=== PATIENT | female | born 1990 | race Caucasian/White ===

== ENCOUNTER 2017-02-20 16:32 | Emergency (ER) | payer MEDICAID ==
[2017-02-20 18:00] LABS: Hematocrit 30.6 % (30.3-42.9); Hemoglobin 9.3 gm/dl (10.1-14.3); Mean Corpuscular HGB Conc 31 % (30-34); Mean Corpuscular Volume 72 fl (79-97); Platelet Count 171 K/mm3 (140-440); Red Blood Count 4.24 M/mm3 (3.65-5.03); Red Cell Distribution Width 17.6 % (13.2-15.2); White Blood Count 5.5 K/mm3 (4.5-11.0)
[2017-02-20 18:07] LABS: Mean Corpuscular Hemoglobin 22 pg (28-32)
[2017-02-20 18:20] LABS: Anion Gap 17 mmol/L; Blood Urea Nitrogen 6 mg/dL (7-17); Calcium 9.1 mg/dL (8.4-10.2); Carbon Dioxide 25 mmol/L (22-30); Chloride 102.7 mmol/L (98-107); Glucose 82 mg/dL (65-100); Potassium 3.6 mmol/L (3.6-5.0); Sodium 141 mmol/L (137-145)
[2017-02-20] MEDS ORDERED: TYLENOL #3 PO ONE (19:15)
[2017-02-20] MEDS ORDERED: CLEOCIN IM ONE (19:15)
--- NOTE | 2017-02-20 19:15 | Emergency Department Report ---
HPI - General Chief Complaint: Dental/Oral Time Seen by Provider: 02/20/17 19:02 - HPI HPI: Patient here for swollen gums aroun left lower back tooth. Pain 10/10 and aching. This started 2 days ago and now with left facial swelling. Took tyleno without relief . Patient does not have a dentist. Denies fever or chills. Denies sore throat. Denies SOB, cough or drooling. denies medical problems. LMP 02/20/2017. ED Past Medical Hx - Past Medical History Previous Medical History?: No - Surgical History Past Surgical History?: No - Family History Family history: no significant - Social History Smoking Status: Never Smoker Substance Use Type: None - Medications Home Medications: Home Medications Medication Instructions Recorded Confirmed Last Taken Type Acetaminophen/Codeine [Tylenol 1 tab PO Q6H PRN #20 tab 02/20/17 Unknown Rx /Codeine # 3 tab] Clindamycin [Clindamycin CAP] 300 mg PO Q8H #30 cap 02/20/17 Unknown Rx Docusate Sodium [Colace] 100 mg PO BID #60 capsule 02/20/17 Unknown Rx Ferrous Sulfate [Feosol 325 MG tab] 325 mg PO BID #60 tablet 02/20/17 Unknown Rx ED Review of Systems ROS: Stated complaint: GUM SWOLLEN,LEFT SIDE Other details as noted in HPI Comment: All other systems reviewed and negative Constitutional: denies: chills, fever ENT: dental pain, other (swoolen left face). denies: ear pain, throat pain, hearing loss, epistaxis, congestion Respiratory: no symptoms reported Cardiovascular: denies: chest pain, palpitations, edema, syncope Gastrointestinal: denies: nausea, vomiting Musculoskeletal: denies: back pain, joint swelling, arthralgia Skin: denies: rash Neurological: denies: headache Physical Exam - Physical Exam Vital Signs: Vital Signs 02/20/17 17:11 Temperature 98.5 F Pulse Rate 76 Respiratory 16 Rate Blood Pressure 116/78 O2 Sat by Pulse 100 Oximetry General: This is a 26 yo patient well- nourished, well developed in no acute distress. Physical Exam: Head: Normocephalic atraumatic Mouth: Moist, no pharyngeal exudate or erythema. Uvula is midline and oral airway is patent. Positive gingival enlargement and inflammation around tooth #17,18 and 19. Positive dental tenderness and erythema around tooth #17 , 18 and 19. Positive left facial swelling. Positive dental caries noted .No peritonsillar abscesses. Neck: Supple, no C-spine tenderness, no tracheal deviation. Nontender to palpate. no adenopathy Ears: Bilateral TMs pearly pearson .bilateral EAC without any redness swelling or drainage Eyes: Bilateral pupils equal and reactive to light, bilateral EOM intact. Bilateral sclera and conjunctiva without injection. Normal accommodation Nose: Mucosa moist, normal mucosa .maxillary and frontal sinus non-tender to palpate. Lungs: Clear to auscultate bilaterally no rhonchi wheezes or rales. Normal work of breathing extremity; No CCE. +2 pulses. No neurovascular compromise Cardiovascular: S1-S2, regular rate rhythm. No murmurs. Skin: clean Dry and intact no rash no lesions Psych: Normal mood and behavior Positive ED Course Vital Signs 02/20/17 17:11 Temperature 98.5 F Pulse Rate 76 Respiratory 16 Rate Blood Pressure 116/78 O2 Sat by Pulse 100 Oximetry - Reevaluation(s) Reevaluation #1: 02/20/17 19:23 Patient received Clindamycin 300 mg im and Tylenol #3 2 tabs po in emergency room for infection and toothache ED Medical Decision Making - Lab Data Result diagrams: 02/20/17 17:22 02/20/17 17:22 Lab Results 02/20/17 02/20/17 Range/Units 17:22 17:22 WBC 5.5 (4.5-11.0) K/mm3 RBC 4.24 (3.65-5.03) M/mm3 Hgb 9.3 L (10.1-14.3) gm/dl Hct 30.6 (30.3-42.9) % MCV 72 L (79-97) fl MCH 22 L (28-32) pg MCHC 31 (30-34) % RDW 17.6 H (13.2-15.2) % Plt Count 171 (140-440) K/mm3 Sodium 141 (137-145) mmol/L Potassium 3.6 (3.6-5.0) mmol/L Chloride 102.7 (98-107) mmol/L Carbon Dioxide 25 (22-30) mmol/L Anion Gap 17 mmol/L BUN 6 L (7-17) mg/dL Creatinine 0.5 L (0.7-1.2) mg/dL Estimated GFR > 60 ml/min BUN/Creatinine Ratio 12.00 % Glucose 82 (65-100) mg/dL Calcium 9.1 (8.4-10.2) mg/dL - Medical Decision Making ED Course: Patient here reports swollen gums and toothache that has been ongoing. Denies fever or chills. Patient with Gingivitis, dental caries, Toothache and cellulites oral mucosa. She was given Tyleno#3 2 tablets for pain control and clindamycin IM 600mg for cellulites. Patient given results of lab work and told that she is anemic and need to take iron pills. and educated on diagnosis and treatment plan. I instructed her to follow up with [facility] to call on Thursday to schedule appointment for dental follow up. She voiced understanding of treatment plan and diagnosis. Patient discharged home with prescription for Tyl #3 , colace, Feso4 and clindamycin. Good RX card given for discount. Critical care attestation.: If time is entered above; I have spent that time in minutes in the direct care of this critically ill patient, excluding procedure time. ED Disposition Clinical Impression: Dental caries, Tooth ache, Oral cellulitis, Gingivitis Anemia Qualifiers: Anemia type: unspecified type Qualified Code(s): D64.9 - Anemia, unspecified Disposition: - TO HOME OR SELFCARE Is pt being admited?: No Does the pt Need Aspirin: No Condition: Stable Instructions: Dental Abscess (ED), Dental Caries (ED), Gingivitis (ED), Toothache (ED), Anemia (ED) Additional Instructions: Please do not drive or operate heavy machinery while taking Tylenol #3 as this medication will cause drowsiness Take antibiotic as prescribed Floss this will help preserve your gums Listerine mouth wash twice daily You are anemic so take iron pills as prescribe and follow up as [facility] for physical exam and repeat labs after taking iron pill for 2 weeks. Take colace and drink plenty of liquid to prevent constipation from iron pills Prescriptions: Acetaminophen/Codeine [Tylenol /Codeine # 3 tab] 1 tab PO Q6H PRN #20 tab PRN Reason: Toothache Clindamycin [Clindamycin CAP] 300 mg PO Q8H #30 cap Docusate Sodium [Colace] 100 mg PO BID #60 capsule Ferrous Sulfate [Feosol 325 MG tab] 325 mg PO BID #60 tablet Referrals: [facility] [Outside] - 3-[address] [facility] [Outside] - 3-5 Days Forms: Accompanied Note, Work/School Release Form(ED)
[2017-02-20 21:21] VITALS: BP 118/70
== END 2017-02-20 20:10 | disposition home or self-care (01) ==
LOC: ED 16:32
DX: K02.9 Dental caries, unspecified (principal); K05.10 Chronic gingivitis, plaque induced; K12.2 Cellulitis and abscess of mouth; D64.9 Anemia, unspecified; Z91.048 Other nonmedicinal substance allergy status
CPT/HCPCS: 36415; 80048; 85027; 96372

== ENCOUNTER 2019-10-24 09:35 | Emergency (ER) | payer SELFPAY ==
[2019-10-24 11:42] LABS: Bilirubin,Urine SM (Negative); Blood,Urine NEG (Negative); Color,Urine Amber (Yellow); Mucus,Urine 3+ /HPF
[2019-10-24] MEDS ORDERED: SODIUM CHLORIDE 0.9% 1000 ML 1,000 ML IV ONE (11:43)
[2019-10-24] MEDS ORDERED: ONDANSETRON 4 MG/2 ML INJ IV ONE (11:43)
--- NOTE | 2019-10-24 11:43 | Emergency Department Report ---
Vomiting/Diarrhea - HPI Chief Complaint: Nausea/Vomiting/Diarrhea Stated Complaint: PREG 8 CANT KEEP ANYTHING DOWN/BLOOD IN VOMIT Time Seen by Provider: 10/24/19 11:01 Duration: 1 week Severity: moderate Nausea/Vomiting Severity: Moderate Diarrhea Severity: None Pain Location: Generalized Symptoms: No Watery Diarrhea, No Bloody diarrhea, No Fever, No Able to Tolerate Fluids, No Recent Unusual Foods, No Recent Untreated Water, No Recent use of Antibiotics, No Family w/ Similar Symptoms, No Contacts w/ Similar Symptoms, No Rash, No Hematuria, No Recent URI Symptoms Other History: 28-year-old -[place] female presents to the emergency room reporting that she is 8 weeks comes in for nausea vomiting for 1 week. Patient denies any vaginal bleeding or vaginal discharge. Patient does report is suprapubic pain and epigastric pain. Patient's last menstrual period was 08/29/2019. Patient is 3 para 1 with a miscarriage of twins. Patient does have a history of anemia. Patient has not started OB care at this time. ED Review of Systems ROS: Stated complaint: PREG 8 CANT KEEP ANYTHING DOWN/BLOOD IN VOMIT Other details as noted in HPI ED Past Medical Hx - Past Medical History Previous Medical History?: Yes Additional medical history: Anemia - Surgical History Past Surgical History?: No - Social History Smoking Status: Never Smoker Substance Use Type: None - Medications Home Medications: Home Medications Medication Instructions Recorded Confirmed Last Taken Type Acetaminophen/Codeine [Tylenol 1 tab PO Q6H PRN #20 tab 02/20/17 Unknown Rx /Codeine # 3 tab] Clindamycin [Clindamycin CAP] 300 mg PO Q8H #30 cap 02/20/17 Unknown Rx Docusate Sodium [Colace] 100 mg PO BID #60 capsule 02/20/17 Unknown Rx Ferrous Sulfate [Feosol 325 MG tab] 325 mg PO BID #60 tablet 02/20/17 Unknown Rx Doxylamine Succinate [Unisom] 25 mg PO BID #30 tablet 10/24/19 Unknown Rx Jaz Root [Jaz] 250 mg PO BID #30 capsule 10/24/19 Unknown Rx Pyridoxine HCl (Vitamin B6) 50 mg PO QDAY #30 tablet 10/24/19 Unknown Rx [Pyridoxine HCl] Vomiting Diarrhea Exam - Exam General: Vital signs noted. No distress. Alert and acting appropriately. Neurologic: Alert and oriented, no deficits. Musculoskeletal: Unremarkable. ED Course Vital Signs 10/24/19 09:41 Temperature 98.2 F Pulse Rate 96 H Respiratory 20 Rate Blood Pressure 117/80 O2 Sat by Pulse 97 Oximetry ED Medical Decision Making - Radiology Data Radiology results: report reviewed Ordering Physician: SISSY VELAZCO Date of Service: 10/24/19 Procedure(s): US abdomen limited Accession Number(s): [id number] cc: SISSY VELAZCO ULTRASOUND ABDOMEN, LIMITED (RIGHT UPPER QUADRANT) INDICATION: RUQ pain with N/V. COMPARISON: None available. FINDINGS: Pancreas: Visualized portion shows no significant abnormality. Liver: Normal. Gallbladder: Sludge is noted in the gallbladder. No gallbladder wall thickening or gallstones. Bile ducts: Normal. Common Bile Duct measures 2 mm. Free fluid: None. Additional Findings: None. IMPRESSION: 1. Gallbladder sludge. Otherwise unremarkable right upper quadrant ultrasound. Signer Name: Kelton Monk MD Signed: 10/24/2019 1:32 PM Workstation Name: [id number] Transcribed By: SW Dictated By: Kelton Monk MD Electronically Authenticated By: Kelton Monk MD Signed Date/Time: 10/24/19 133 DD/ 1331 TD/TT: Patient: THEO KC V MR#: [id number] 17 : 1990 Acct:[id number] Age/Sex: 28 / F ADM Date: 10/24/19 Loc: ED Attending Dr: Ordering Physician: SISSY VELAZCO Date of Service: 10/24/19 Procedure(s): US OB <= 14 weeks fetus Accession Number(s): [id number] cc: SISSY VELAZCO ULTRASOUND OBSTETRIC INDICATION: 8 weeks with pelvic pain. TECHNIQUE: Transabdominal and Transvaginal. COMPARISON: None available. FINDINGS: GESTATIONAL SAC: Well-defined oval shape and intrauterine in location. YOLK SAC: No significant abnormality. EMBRYO/FETUS: No significant abnormality. - [place]-Rump Length = 0.12 cm = 7 weeks, 3 day(s). - Heart Rate = 144 beats per minute. ADNEXA: No significant abnormality. FREE FLUID: None. ADDITIONAL FINDINGS: 2 areas of subchorionic hemorrhage are seen measuring 1.2 x 0.5 x 0.9 cm and 1.4 x 0.8 x 0.5 cm. IMPRESSION: 1. Single, living intrauterine with estimated sonographic age of 7 weeks, 3 day(s). 2. 2 small areas of subchorionic hemorrhage as above. Signer Name: Andrew Cintron MD Signed: 10/24/2019 1:39 PM Workstation Name: [id number] Transcribed By: JAMES Dictated By: Andrew Cintron MD Electronically Authenticated By: Andrew Cintron MD Signed Date/Time: 10/24/191338 DD/ 35 TD/TT: - Medical Decision Making 28-year-old -[place] female presents to the emergency room reporting that she is 8 weeks comes in for nausea vomiting for 1 week. Patient denies any vaginal bleeding or vaginal discharge. Patient does report is suprapubic pain and epigastric pain. Patient's last menstrual period was 08/29/2019. Patient is 3 para 1 with a miscarriage of twins. Patient does have a history of anemia. Patient has not started OB care at this time. Patient reports she feels much better she is able to now drink p.o. Patient be discharged home on gingerroot B6 and Unisom patient is to follow-up with her primary [facility] ESTIMATOR. Critical care attestation.: If time is entered above; I have spent that time in minutes in the direct care of this critically ill patient, excluding procedure time. ED Disposition Clinical Impression: Hyperemesis gravidarum Disposition: DC-01 TO HOME OR SELFCARE Is pt being admited?: No Does the pt Need Aspirin: No Condition: Stable Instructions: Hyperemesis Gravidarum (ED) Additional Instructions: Patient reports she feels much better she is able to now drink p.o. Patient be discharged home on jaz root B6 and Unisom patient is to follow-up with her primary TIMBER ESTIMATOR. Prescriptions: Jaz Root [Jaz] 250 mg PO BID #30 capsule Pyridoxine HCl (Vitamin B6) [Pyridoxine HCl] 50 mg PO QDAY #30 tablet Doxylamine Succinate [Unisom] 25 mg PO BID #30 tablet Referrals: PRIMARY CARE, [Primary Care Provider] - 3-5 Days [facility] [Provider Group] - 3-5 Days [facility] [Provider Group] - 3-5 Days
[2019-10-24 11:45] LABS: Ictotest,Urine Negative (Negative)
[2019-10-24 11:50] LABS: Basophils % (Auto) 0.8 % (0.0-1.8); Eosinophils % (Auto) 0.3 % (0.0-4.3); Hematocrit 39.9 % (30.3-42.9); Hemoglobin 13.3 gm/dl (10.1-14.3); Lymphocytes # (Auto) 1.1 K/mm3 (1.2-5.4); Lymphocytes % (Auto) 17.8 % (13.4-35.0); Mean Corpuscular HGB Conc 33 % (30-34); Mean Corpuscular Volume 86 fl (79-97); Monocytes # (Auto) 0.5 K/mm3 (0.0-0.8); Monocytes % (Auto) 9.2 % (0.0-7.3); Platelet Count 224 K/mm3 (140-440); Red Blood Count 4.62 M/mm3 (3.65-5.03); Red Cell Distribution Width 14.5 % (13.2-15.2)
[2019-10-24 12:17] LABS: Alanine Aminotransferase 8 units/L (7-56); BUN/Creatinine Ratio 15; Blood Urea Nitrogen 9 mg/dL (7-17); Calcium 10.1 mg/dL (8.4-10.2); Hemolysis Index 6
--- NOTE | 2019-10-24 13:36 | Ultrasound Report ---
ULTRASOUND ABDOMEN, LIMITED (RIGHT UPPER QUADRANT) INDICATION: RUQ pain with N/V. COMPARISON: None available. FINDINGS: Pancreas: Visualized portion shows no significant abnormality. Liver: Normal. Gallbladder: Sludge is noted in the gallbladder. No gallbladder wall thickening or gallstones. Bile ducts: Normal. Common Bile Duct measures 2 mm. Free fluid: None. Additional Findings: None. IMPRESSION: 1. Gallbladder sludge. Otherwise unremarkable right upper quadrant ultrasound. Signer Name: Kelton Monk MD Signed: 10/24/2019 1:32 PM Workstation Name: [id number]
--- NOTE | 2019-10-24 13:43 | Ultrasound Report ---
ULTRASOUND OBSTETRIC INDICATION: 8 weeks with pelvic pain. TECHNIQUE: Transabdominal and Transvaginal. COMPARISON: None available. FINDINGS: GESTATIONAL SAC: Well-defined oval shape and intrauterine in location. YOLK SAC: No significant abnormality. EMBRYO/FETUS: No significant abnormality. - [place]-Rump Length = 0.12 cm = 7 weeks, 3 day(s). - Heart Rate = 144 beats per minute. ADNEXA: No significant abnormality. FREE FLUID: None. ADDITIONAL FINDINGS: 2 areas of subchorionic hemorrhage are seen measuring 1.2 x 0.5 x 0.9 cm and 1.4 x 0.8 x 0.5 cm. IMPRESSION: 1. Single, living intrauterine with estimated sonographic age of 7 weeks, 3 day(s). 2. 2 small areas of subchorionic hemorrhage as above. Signer Name: Andrew Cintron MD Signed: 10/24/2019 1:39 PM Workstation Name: [id number]
--- NOTE | 2019-10-24 13:43 | Ultrasound Report ---
ULTRASOUND OBSTETRIC INDICATION: 8 weeks with pelvic pain. TECHNIQUE: Transabdominal and Transvaginal. COMPARISON: None available. FINDINGS: GESTATIONAL SAC: Well-defined oval shape and intrauterine in location. YOLK SAC: No significant abnormality. EMBRYO/FETUS: No significant abnormality. - [place]-Rump Length = 0.12 cm = 7 weeks, 3 day(s). - Heart Rate = 144 beats per minute. ADNEXA: No significant abnormality. FREE FLUID: None. ADDITIONAL FINDINGS: 2 areas of subchorionic hemorrhage are seen measuring 1.2 x 0.5 x 0.9 cm and 1.4 x 0.8 x 0.5 cm. IMPRESSION: 1. Single, living intrauterine with estimated sonographic age of 7 weeks, 3 day(s). 2. 2 small areas of subchorionic hemorrhage as above. Signer Name: Andrew Cintron MD Signed: 10/24/2019 1:39 PM Workstation Name: [id number]
[2019-10-24 14:12] VITALS: BP 118/80
== END 2019-10-24 14:11 | disposition home or self-care (01) ==
LOC: ED 09:35
DX: O21.0 Mild hyperemesis gravidarum (principal); O21.8 Other vomiting complicating pregnancy; O26.891 Other specified pregnancy related conditions, first trimester; Z3A.08 8 weeks gestation of pregnancy; Z79.899 Other long term (current) drug therapy; Z91.018 Allergy to other foods
CPT/HCPCS: 36415; 76705; 76801; 76817; 80053; 81001; 83690; 84702; 85025; 87086; 96361; 96374; 99284; J2405; J7030

== ENCOUNTER 2022-01-17 10:07 | Emergency (ER) | payer MEDICAID ==
[2022-01-17 11:39] LABS: Basophils % (Auto) 0.6 % (0.0-1.8); Eosinophils % (Auto) 0.6 % (0.0-4.3); Hematocrit 37.4 % (30.3-42.9); Hemoglobin 11.9 gm/dl (10.1-14.3); Lymphocytes # (Auto) 1.8 K/mm3 (1.2-5.4); Lymphocytes % (Auto) 43.7 % (13.4-35.0); Mean Corpuscular HGB Conc 32 % (30-34); Mean Corpuscular Volume 86 fl (79-97); Monocytes # (Auto) 0.3 K/mm3 (0.0-0.8); Monocytes % (Auto) 8.1 % (0.0-7.3); Platelet Count 168 K/mm3 (140-440); Red Blood Count 4.32 M/mm3 (3.65-5.03); Red Cell Distribution Width 14.6 % (13.2-15.2)
[2022-01-17 13:12] LABS: Alanine Aminotransferase 9 units/L (7-56); Albumin 4.7 g/dL (3.9-5); Blood Urea Nitrogen 7 mg/dL (7-17); Calcium 9.4 mg/dL (8.4-10.2); Hemolysis Index 0
[2022-01-17 13:23] LABS: BUN/Creatinine Ratio 14
--- NOTE | 2022-01-17 14:14 | Emergency Department Report ---
ED HPI - General Chief complaint: Vaginal Bleeding Stated complaint: 5 WEEKS PREG AND BLEEDING Source: patient Mode of arrival: Ambulatory Limitations: No Limitations - History of Present Illness Initial comments: 31-year-old female presents to the ED complaining of vaginal bleed x2-day. Patient states that she previous went to [facility]. She states that her hCG quant was 804. Patient is 4 Par 1 A 2. Patient states denies any abdominal pain at present time. She states that the vaginal bleeding is very light that she only noticed a bleeding when she wiped. Patient denies any fever chills nausea vomiting, she states last menstrual cycle was December 07.She states that she [facility] December [facility]. She states next appointment is in February. Patient is alert and oriented x3. No acute distress noted. No ill appearance noted. MD Complaint: vaginal bleeding - Related Data Previous Rx's Medication Instructions Recorded Last Taken Type Acetaminophen/Codeine [Tylenol 1 tab PO Q6H PRN #20 tab 02/20/17 Unknown Rx /Codeine # 3 tab] Clindamycin [Clindamycin CAP] 300 mg PO Q8H #30 cap 02/20/17 Unknown Rx Docusate Sodium [Colace] 100 mg PO BID #60 capsule 02/20/17 Unknown Rx Ferrous Sulfate [Feosol 325 MG tab] 325 mg PO BID #60 tablet 02/20/17 Unknown Rx Doxylamine Succinate [Unisom] 25 mg PO BID #30 tablet 10/24/19 Unknown Rx Lisandra Root [Lisandra] 250 mg PO BID #30 capsule 10/24/19 Unknown Rx Pyridoxine HCl (Vitamin B6) 50 mg PO QDAY #30 tablet 10/24/19 Unknown Rx [Pyridoxine HCl] Ciprofloxacin HCl 500 mg PO DAILY 7 Days #7 tab 01/17/22 Unknown Rx Allergies Allergy/AdvReac Type Severity Reaction Status Date / Time melgoza flavor Allergy Angioedema Verified 02/20/17 17:13 ED Review of Systems ROS: Stated complaint: 5 WEEKS PREG AND BLEEDING Other details as noted in HPI Constitutional: denies: chills, fever Eyes: denies: eye pain, eye discharge, vision change ENT: denies: ear pain, throat pain Respiratory: denies: cough, shortness of breath, wheezing Cardiovascular: denies: chest pain, palpitations Endocrine: no symptoms reported Gastrointestinal: denies: abdominal pain, nausea, diarrhea Genitourinary: denies: urgency, dysuria, discharge Musculoskeletal: denies: back pain, joint swelling, arthralgia Skin: denies: rash, lesions Neurological: denies: headache, weakness, paresthesias Psychiatric: denies: anxiety, depression Hematological/Lymphatic: denies: easy bleeding, easy bruising ED Past Medical Hx - Past Medical History Additional medical history: Anemia - Social History Smoking Status: Never Smoker Substance Use Type: None - Medications Home Medications: Home Medications Medication Instructions Recorded Confirmed Last Taken Type Acetaminophen/Codeine [Tylenol 1 tab PO Q6H PRN #20 tab 02/20/17 Unknown Rx /Codeine # 3 tab] Clindamycin [Clindamycin CAP] 300 mg PO Q8H #30 cap 02/20/17 Unknown Rx Docusate Sodium [Colace] 100 mg PO BID #60 capsule 02/20/17 Unknown Rx Ferrous Sulfate [Feosol 325 MG tab] 325 mg PO BID #60 tablet 02/20/17 Unknown Rx Doxylamine Succinate [Unisom] 25 mg PO BID #30 tablet 10/24/19 Unknown Rx Lisandra Root [Lisandra] 250 mg PO BID #30 capsule 10/24/19 Unknown Rx Pyridoxine HCl (Vitamin B6) 50 mg PO QDAY #30 tablet 10/24/19 Unknown Rx [Pyridoxine HCl] Ciprofloxacin HCl 500 mg PO DAILY 7 Days #7 tab 01/17/22 Unknown Rx ED Physical Exam - General Limitations: No Limitations General appearance: alert, in no apparent distress - Head Head exam: Present: atraumatic, normocephalic - Eye Eye exam: Present: normal appearance - ENT ENT exam: Present: mucous membranes moist - Neck Neck exam: Present: normal inspection - Respiratory Respiratory exam: Present: normal lung sounds bilaterally. Absent: respiratory distress - Cardiovascular Cardiovascular Exam: Present: regular rate, normal rhythm. Absent: systolic murmur, diastolic murmur, rubs, gallop - GI/Abdominal GI/Abdominal exam: Present: soft, normal bowel sounds - Speculum exam: Present: vaginal bleeding - Extremities Exam Extremities exam: Present: normal inspection - Back Exam Back exam: Present: normal inspection - Neurological Exam Neurological exam: Present: alert, oriented X3 - Psychiatric Psychiatric exam: Present: normal affect, normal mood - Skin Skin exam: Present: warm, dry, intact, normal color. Absent: rash ED Course Vital Signs 01/17/22 15:26 Pulse Rate 68 Respiratory 18 Rate Blood Pressure 117/70 [Right] O2 Sat by Pulse 99 Oximetry ED Medical Decision Making - Lab Data Result diagrams: 01/17/22 10:17 01/17/22 10:31 - Radiology Data [facility] [address] [place] [address] Ultrasound Report Signed Patient: THEO KC V MR#: [id number] 17 : 1990 Acct:[id number] Age/Sex: 31 / F ADM Date: 01/17/22 Loc: ED Attending Dr: Ordering Physician: LONNIE STOLL Date of Service: 01/17/22 Procedure(s): US transvaginal Accession Number(s): [id number] cc: LONNIE STOLL [facility] HISTORY: Vaginal bleeding COMPARISON: 10/24/2019 TECHNIQUE: Routine transabdominal OB ultrasound performed. FINDINGS: Uterus: The uterus is anteverted and normal size measuring 9.7 x 4.1 x 6.1 cm. Gestational Sac: Not seen Yolk Sac: Not seen Fetus/Embryo: Not seen Endometrium: 6 mm in thickness. Trace endometrial fluid. Ovaries: The right ovary is normal in size and appearance with normal blood flow, measuring 3.3 x 1.8 x 2.2 cm. The left ovary is normal in size and appearance with normal blood flow, measuring 2.0 x 1.2 x 2.1 cm. Additional findings: None. IMPRESSION No intrauterine is visualized at this time. The endometrium measures 6 mm and contains trace fluid. Signer Name: Mason Velarde Jr, MD Signed: 01/17/2022 2:51 PM Workstation Name: [id number] Transcribed By: TTR Dictated By: MASON VELARDE JR, MD Electronically Authenticated By: MASON VELARDE JR, MD Signed Date/Time: 01/17/22 1451 DD/ 1448 TD/TT: - Medical Decision Making 31-year-old female presents to the ED complaining of vaginal bleed x2-day. Patient states that she previous went to [facility]. She states that her hCG quant was 804. Patient is 4 Par 1 A 2. Patient states denies any abdominal pain at present time. She states that the vaginal bleeding is very light that she only noticed a bleeding when she wiped. Patient denies any fever chills nausea vomiting, she states last menstrual cycle was December 07.She states that she had a positive test on December 21 at [facility]. She states next appointment is in February. Patient is alert and oriented x3. No acute distress noted. No ill appearance noted. Physical lamination is unremarkable. Patient hCG quant is 678.8 today. Patient ultrasound shows viable , to follow-up with [facility] in 48 hours to have hCG quant redrawn. Rechecked the patient is resting quietly quietly and comfortable and feeling better. I discussed the results of diagnostic study, my clinical impression and the plan for further treatment with the patient. Patient agrees with plan and discharge at this present time. All question addressed. I have given the patient instruction regarding a diagnosis ,expectation ,follow- up and return precaution. I explained to the patient that emergent condition may arise and to return to the ED for new worsen and any new persisting condition. I have explained the importance of following up with the primary care physician or referral physician listed below has instructed. The patient verbalized understanding of discharge instruction. Abnormal Lab Results 01/17/22 01/17/22 01/17/22 10:17 10:24 10:31 WBC 4.2 L RBC 4.32 Hgb 11.9 Hct 37.4 MCV 86 MCH 28 MCHC 32 RDW 14.6 Plt Count 168 Lymph % (Auto) 43.7 H Grainger % (Auto) 8.1 H Eos % (Auto) 0.6 Baso % (Auto) 0.6 Lymph # (Auto) 1.8 Grainger # (Auto) 0.3 Eos # (Auto) 0.0 Baso # (Auto) 0.0 Seg Neutrophils % 47.0 Seg Neutrophils # 2.0 Sodium 140 Potassium 3.6 Chloride 104.9 Carbon Dioxide 22 Anion Gap 17 BUN 7 Creatinine 0.5 L Estimated GFR > 60 BUN/Creatinine Ratio 14 Glucose 94 Calcium 9.4 Total Bilirubin 0.40 AST 14 ALT 9 Alkaline Phosphatase 63 Total Protein 8.8 H Albumin 4.7 Albumin/Globulin Ratio 1.1 HCG, Quant 678.8 H Urine Color Urine Turbidity Urine pH Ur Specific Central Urine Protein Urine Glucose (UA) Urine Ketones Urine Blood Urine Nitrite Urine Bilirubin Urine Urobilinogen Ur Leukocyte Esterase Urine WBC (Auto) Urine RBC (Auto) U Epithel Cells (Auto) Amorphous Crystals Urine Mucus Blood Type 01/17/22 01/17/22 10:31 14:01 WBC RBC Hgb Hct MCV MCH MCHC RDW Plt Count Lymph % (Auto) Grainger % (Auto) Eos % (Auto) Baso % (Auto) Lymph # (Auto) Grainger # (Auto) Eos # (Auto) Baso # (Auto) Seg Neutrophils % Seg Neutrophils # Sodium Potassium Chloride Carbon Dioxide Anion Gap BUN Creatinine Estimated GFR BUN/Creatinine Ratio Glucose Calcium Total Bilirubin AST ALT Alkaline Phosphatase Total Protein Albumin Albumin/Globulin Ratio HCG, Quant Urine Color Yellow Urine Turbidity Turbid Urine pH 5.0 Ur Specific Central 1.029 Urine Protein 30 mg/dl Urine Glucose (UA) Neg Urine Ketones Tr Urine Blood Sm Urine Nitrite Neg Urine Bilirubin Neg Urine Urobilinogen < 2.0 Ur Leukocyte Esterase Neg Urine WBC (Auto) 34.0 H Urine RBC (Auto) 3.0 U Epithel Cells (Auto) 6.0 Amorphous Crystals 3+ Urine Mucus 3+ Blood Type A POSITIVE Critical care attestation.: If time is entered above; I have spent that time in minutes in the direct care of this critically ill patient, excluding procedure time. ED Disposition Clinical Impression: Miscarriage, threatened, early , Acute urinary tract infection Disposition: 01 HOME / SELF CARE / HOMELESS Is pt being admited?: No Does the pt Need Aspirin: No Condition: Stable Instructions: Threatened Miscarriage, Urinary Tract Infection, Adult Additional Instructions: Follow-up with [facility] in 2 days to have hCG repeat drawn Return to ED for any worsening symptom Prescriptions: Ciprofloxacin HCl 500 mg PO DAILY 7 Days #7 tab Referrals: PRIMARY CAREMD [Primary Care Provider] - 3-5 Days [facility] [Provider Group] - 3-5 Days Forms: Work/School Release Form(ED) Time of Disposition: 15:13
--- NOTE | 2022-01-17 14:56 | Ultrasound Report ---
[facility] OBSTETR[facility] ULTRASOUND HISTORY: Vaginal bleeding COMPARISON: 10/24/2019 TECHNIQUE: Routine transabdominal OB ultrasound performed. FINDINGS: Uterus: The uterus is anteverted and normal size measuring 9.7 x 4.1 x 6.1 cm. Gestational Sac: Not seen Yolk Sac: Not seen Fetus/Embryo: Not seen Endometrium: 6 mm in thickness. Trace endometrial fluid. Ovaries: The right ovary is normal in size and appearance with normal blood flow, measuring 3.3 x 1. 8 x 2.2 cm. The left ovary is normal in size and appearance with normal blood flow, measuring 2.0 x 1.2 x 2.1 cm. Additional findings: None. IMPRESSION No intrauterine is visualized at this time. The endometrium measures 6 mm and contains trac e fluid. Signer Name: Mason Velarde Jr, MD Signed: 01/17/2022 2:51 PM Workstation Name: [id number]
[2022-01-17 15:12] LABS: Amorphous Crystals,Urine 3+; Bilirubin,Urine NEG (Negative); Blood,Urine SM (Negative); Color,Urine Yellow (Yellow); Mucus,Urine 3+ /HPF; Urobilinogen,Urine < 2.0 mg/dL (<2.0)
[2022-01-17 15:27] VITALS: BP 117/70
== END 2022-01-17 15:42 | disposition home or self-care (01) ==
LOC: ED 10:07
DX: O20.0 Threatened abortion (principal); O23.40 Unspecified infection of urinary tract in pregnancy, unspecified trimester; Z3A.01 Less than 8 weeks gestation of pregnancy
CPT/HCPCS: 36415; 76801; 76830; 80053; 81001; 84702; 85025; 86900; 86901; 87086; 99284